=== PATIENT | male | born 2000 | race American Indian/Alaskan Native ===

== ENCOUNTER 2024-08-16 08:48 | Emergency (ER) | payer OTHER, SELFPAY ==
[2024-08-16 08:59] VITALS: BP 148/67; PULSE 105; RESP 20; TEMP 39.1; O2SAT 95; BMI 33.0
--- NOTE | 2024-08-16 09:19 | ED_ITS ---
HPI - Nausea/Vomiting/Diarrhea General Chief complaint: Nausea/Vomiting/Diarrhea Stated complaint: N/V/D Headaches Time Seen by Provider: 08/16/24 09:07 Source: patient Mode of arrival: Ambulatory History of Present Illness HPI Narrative: Patient here with girlfriend with the same complaints. Has had 4 or 5 days of nausea vomiting diarrhea fever body aches chills. Has not taken anything for fever here today yet. Denies any history of heart attack strokes or diabetes. Patient in no distress at this time.. No recent foreign travel. Related Data Previous Rx's Medication Instructions Recorded ondansetron 4 mg disintegrating 4 mg PO Q8H PRN nausea and 08/16/24 tablet vomiting #20 tabs Allergies Allergy/AdvReac Type Severity Reaction Status Date / Time amoxicillin Allergy Rash Verified 08/16/24 09:04 erythromycin base Allergy Rash Verified 08/16/24 09:04 Penicillins Allergy Rash Verified 08/16/24 09:04 Review of Systems Review of Systems Narrative: GENERAL: Positive chills, fatigue, malaise, fever, negative sweats. HEENT: Negative sinus pain, ear pain, sore throat RESPIRATORY: Negative dyspnea, cough CARDIOVASCULAR: Negative chest pain, palpitations GASTROINTESTINAL: Positive diarrhea nausea, vomiting, negative abdominal pain : Negative dysuria, frequency, hematuria MUSCULOSKELETAL: Negative muscle or bony pain SKIN: Negative rash, skin lesions NEUROLOGIC: Negative weakness, numbness ROS Unobtainable: All systems reviewed & are unremarkable except as noted in HPI and below Patient History Social History Smoking Status: Never smoker Smoking Status: Never smoker Exam Narrative Exam Narrative: GENERAL: in no distress, not toxic not dyspneic HEAD: Normocephalic. EYES: Pupils equal round ENT: Mucous membranes moist. NECK: Trachea midline. CARDIOVASCULAR: Regular rate and rhythm RESPIRATORY: Clear to auscultation. Breath sounds equal bilaterally. No wheezes, rales, or rhonchi. GASTROINTESTINAL: Abdomen soft, non-tender, no peritoneal signs bowel sounds are present no guarding no rebound EXTREMITIES: No gross deformities. BACK: No flank tenderness. NEURO: AOx4. Clear speech SKIN: Warm and dry PSYCH: Not anxious, is cooperative Initial Vital Signs Initial Vital Signs: Vital Signs Temperature 102.4 F H 08/16/24 08:59 Pulse Rate 105 H 08/16/24 08:59 Respiratory Rate 20 08/16/24 08:59 Blood Pressure 148/67 H 08/16/24 08:59 Pulse Oximetry 95 08/16/24 08:59 Oxygen Delivery Method Room Air 08/16/24 08:59 Course Orders Ordered: Discontinued Medications Ibuprofen (Ibuprofen 400 Mg Tablet) 800 mg PO NOW ONE Stop: 08/16/24 09:19 Last Admin: 08/16/24 09:27 Dose: 800 mg Documented By: ROYAL Ondansetron HCl (Ondansetron 4 Mg Odt) 4 mg SL NOW ONE Stop: 08/16/24 09:19 Last Admin: 08/16/24 09:27 Dose: 4 mg Documented By: ROYAL Vital Signs Vital signs: Vital Signs - 8 hr 08/16/24 08:59 Temperature 102.4 F H Pulse Rate 105 H Respiratory Rate 20 Blood Pressure 148/67 H Pulse Oximetry 95 Oxygen Delivery Method Room Air [facility] - Nausea/Vomiting/Diarrhea Lab Data Labs: Lab Results 08/16/24 Range/Units 09:13 SARS-CoV-2 (PCR) Negative (Negative) Influenza A (RT-PCR) Flu a positive H (NEGATIVE) Influenza B (RT-PCR) Flu b negative (NEGATIVE) RSV (PCR) Negative (Negative) [facility] Narrative Medical decision making narrative: Patient here with girlfriend with the same complaints. Has had 4 or 5 days of nausea vomiting diarrhea fever body aches chills. Has not taken anything for fever here today yet. Denies any history of heart attack strokes or diabetes. Patient in no distress at this time.. No recent foreign travel. After history and exam, exam is reassuring. Respiratory panel ibuprofen Zofran will be ordered. Patient is tolerating p.o. at this time. No IV fluids or blood work indicated at this time. [facility] Medical records reviewed: No recent visit for this complaint Differential considered: Includes but not limited to influenza RSV COVID rhino virus adenovirus Lab Test results independently reviewed as above. Pertinent findings: Positive influenza Treatments: Zofran ibuprofen Re-evaluations: 10:30 a.m.. Patient feeling much better. Tolerating p.o. without vomiting. Reviewed results with patient. Positive influenza A. He does have primary care to follow up with. Work note provided. Here desires discharge home. Discussion: Appropriate for discharge home exam is reassuring. Patient not toxic. Nausea controlled. Work note provided. Return precautions reviewed. Patient is pleased with plan and does have family doctor to follow up with. He desires discharge home. Diagnosis: Influenza Discharge Plan Departure Patient Disposition: Home Clinical Impression: Influenza A, Nausea, Vomiting, and Diarrhea Instructions: DI for Influenza -- Adult, Nausea and Vomiting-Adult Activity Restrictions/Additional Instructions: You have tested positive for the flu. No antibiotics are indicated. Work note has been provided for you. Prescription for nausea medication has been provided for you. Keep well hydrated get plenty of rest. See family doctor next week for re-evaluation. Return if worse if any questions or concerns Prescriptions: New ondansetron 4 mg tablet,disintegrating 4 mg PO Q8H PRN (Reason: nausea and vomiting) Qty: 20 0RF Referrals: Greer Willis PA-C [Primary Care Provider] - Stand Alone Forms: Patient Portal/API/Survey, Work Release Note
[2024-08-16] MEDS: IBUPROFEN 400 MG TABLET 800 MG PO (09:27)
[2024-08-16] MEDS: ONDANSETRON 4 MG ODT SL (09:27)
[2024-08-16 09:55] LABS: COVID-19 CEPHEID 4-PLEX PCR Negative (Negative); Influenza A - CEPHEID Flu A POSITIVE (NEGATIVE); Influenza B - CEPHEID Flu B NEGATIVE (NEGATIVE); Respiratory Syncytial Virus Negative (Negative)
[2024-08-16 10:52] VITALS: BP 124/55; PULSE 96; RESP 20; TEMP 37.9; O2SAT 97
== END 2024-08-16 10:54 | disposition home or self-care (01) ==
PROVIDERS: Emergency Provider Emergency Medicine; Family Provider Physician Assistant; PCP Physician Assistant
DX: J10.1 Influenza due to other identified influenza virus with other respiratory manifestations (principal); R11.2 Nausea with vomiting, unspecified; R19.7 Diarrhea, unspecified
CPT/HCPCS: 0241U; 99283